=== PATIENT | female | born 1970 | race Caucasian/White ===

== ENCOUNTER 2024-03-02 16:40 | Emergency (ER) | payer BC, OTHER ==
[2024-03-02 16:57] VITALS: TEMP 98
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
[2024-03-02] MEDS: ACETAMINOPHEN TAB 500 MG TAB PO STA (17:23)
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
[2024-03-02 18:53] VITALS: BP 140/88; PULSE 75; RESP 20
== END 2024-03-02 18:53 | disposition home or self-care (01) ==
LOC: EC 16:40
DX: S00.03XA Contusion of scalp, initial encounter (principal); S00.81XA Abrasion of other part of head, initial encounter; V43.52XA Car driver injured in collision with other type car in traffic accident, initial encounter
CPT/HCPCS: 70450; 70486; 72125; 99284